=== PATIENT | female | born 1980 | race Caucasian/White ===

== ENCOUNTER 2017-04-24 13:27 | Emergency (ER) | payer OTHER ==
[~2017-04-24] VITALS: Ht 170.2 cm; Wt 103.0 kg
[2017-04-24 13:34] VITALS: BP 144/101; PULSE 100; RESP 16; TEMP 98.3; O2SAT 97
[2017-04-24] MEDS ORDERED: ROBA750T PO (13:56)
[2017-04-24] MEDS ORDERED: IBUP800T23 PO (13:56)
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
[2017-04-24] MEDS ORDERED: KETOROLAC TROMETHAMINE 60 MG/2 ML (IM) VIAL IM ONE (14:15)
== END 2017-04-24 14:25 | disposition home or self-care (01) ==
LOC: PHEFT 13:27
DX: G44.209 Tension-type headache, unspecified, not intractable (principal); S29.012A Strain of muscle and tendon of back wall of thorax, initial encounter; V43.52XA Car driver injured in collision with other type car in traffic accident, initial encounter; Y93.9 Activity, unspecified; Y92.9 Unspecified place or not applicable; Y99.9 Unspecified external cause status
CPT/HCPCS: 96372; 99284; J1885